=== PATIENT | female | born 1990 | race Caucasian/White ===

== ENCOUNTER 2017-10-17 15:54 | Emergency (ER) | payer MEDICAID ==
[~2017-10-17] VITALS: Ht 160 cm; Wt 136.4 kg
[2017-10-17] MEDS ORDERED: TYLENOL 325MG325 MG PO (16:08)
[2017-10-17] MEDS ORDERED: UNABLE (16:09)
[2017-10-17] MEDS ORDERED: ZOFRAN ODT8 M1 PO (16:49)
[2017-10-17] MEDS ORDERED: NORCO 325 MG-51 TA1 PO (16:49)
[2017-10-17 17:36] VITALS: BP 146/78
== END 2017-10-17 17:50 | disposition home or self-care (01) ==
LOC: ED 15:54
DX: G43.909 Migraine, unspecified, not intractable, without status migrainosus (principal); I10 Essential (primary) hypertension; E11.9 Type 2 diabetes mellitus without complications; E66.01 Morbid (severe) obesity due to excess calories; Z68.43 Body mass index [BMI] 50.0-59.9, adult

== ENCOUNTER → 2017-11-16 | Outpatient (CLI) | payer MEDICAID ==
[2017-10-17 17:36] VITALS: BP 146/78
[~2017-11-16] MED LIST: NORCO 325 MG-51 TA1 PO; TYLENOL 325MG325 MG PO; UNABLE; ZOFRAN ODT8 M1 PO
[2017-11-16 15:35] LABS: EOS # 0.1 (0.04-0.40); EOS % 1.8 % (1.0-5.0); HEMATOCRIT 45.9 % (37.0-47.0); HEMOGLOBIN 16.1 g/dL (12.5-16.0); LYMPH# 2.8 (1.50-4.00); MEAN CELL VOLUME 92 fl (78-100); MEAN CORPUSCULAR HEMOGLOBIN 32 pg (27-31); MEAN CORPUSCULAR HGB CONC 35 g/dL (33-37); MONO # 0.4 (0.20-0.80); PLATELET COUNT 205 K/mm3 (130-400); RED CELL DISTRIBUTION WIDTH 13.1 % (11.5-14.5); WHITE BLOOD COUNT 7.4 K/mm3 (4.8-10.8)
[2017-11-16 15:38] LABS: ALT/SGPT 52 U/L (9-52); AST-SGOT 30 U/L (14-36); BUN/CREATININE RATIO 21.7 (6.0-26.0); CALCIUM 9.5 mg/dL (8.4-10.2); CARBON DIOXIDE 25 mmol/L (22-30); GLUCOSE 301 mg/dL (65-105); POTASSIUM 4.2 mmol/L (3.6-5.0); SODIUM 137 mmol/L (137-145); TOTAL BILIRUBIN 0.5 mg/dL (0.2-1.3); TOTAL PROTEIN 7.4 g/dL (6.3-8.2)
[2017-11-16 15:50] LABS: MEAN PLATELET VOLUME 12.2 fl (7.4-10.4)
== END ==
LOC: LAB 14:57
PROVIDERS: Family Medicine
DX: E66.9 Obesity, unspecified (principal)

== ENCOUNTER → 2017-11-19 | Outpatient (CLI) | payer MEDICAID | LOC: RAD 15:00 | DX: M54.5 Low back pain (principal) ==

== ENCOUNTER → 2018-02-05 | Outpatient (CLI) | payer MEDICAID | LOC: LAB 12:28 | DX: M25.571 Pain in right ankle and joints of right foot (principal) ==

== ENCOUNTER → 2018-04-25 | Outpatient (CLI) | payer MEDICAID | LOC: LAB 12:12 | DX: N92.6 Irregular menstruation, unspecified (principal) ==